=== PATIENT | female | born 2000 | race Asian ===

== ENCOUNTER 2022-02-18 12:54 | Emergency (ER) | payer OTHER ==
[~2022-02-18] VITALS: Ht 165.1 cm; Wt 96.6 kg
[2022-02-18 13:13] VITALS: BP 139/74
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
[2022-02-18 16:05] VITALS: BP 136/85
--- NOTE | 2022-02-18 16:05 | NUR ---
Patient discharged with v/s stable. Written and verbal after care instructions ABOUT SMOKE INHALATION given and explained. Patient verbalized understanding. Ambulatory with steady gait. All questions addressed prior to discharge. Advised to follow up with PMD.
== END 2022-02-18 16:05 | disposition home or self-care (01) ==
LOC: MED 12:54
DX: T59.811A Toxic effect of smoke, accidental (unintentional), initial encounter (principal); Y92.009 Unspecified place in unspecified non-institutional (private) residence as the place of occurrence of the external cause
CPT/HCPCS: 99281